=== PATIENT | female | born 2000 | race African-American/Black ===

== ENCOUNTER 2021-09-07 00:46 | Emergency (ER) | payer SELFPAY ==
[2021-09-07] MEDS ORDERED: Famotidine 20 MG TAB ONE (02:03)
[2021-09-07] MEDS ORDERED: predniSONE 20 MG TAB ONE (02:05)
== END 2021-09-07 03:32 | disposition home or self-care (01) ==
LOC: ERS 00:46
DX: T78.40XA Allergy, unspecified, initial encounter (principal)
CPT/HCPCS: 99283; J7512